=== PATIENT | female | born 1980 | race Caucasian/White ===

== ENCOUNTER 2017-07-18 05:58 | Day surgery (SDC) | payer MEDICAID ==
[~2017-07-18] VITALS: Ht 177.8 cm; Wt 122.5 kg
[~2017-07-18 05:58] MED LIST: AMBIEN10 MG; AMOX/K CLAV875 M1 PO; AMOXICILLIN500 M1 OR; AMOXICILLIN500 MG PO; AMOXIL500 MG OR; AUGMENTIN500 MG OR; BENTYL10 MG PO; BENTYL20 MG PO; CIPRO500 MG OR; CIPROFLOXACN500 MG PO; FENOFIBRATE145 MG PO; FLAGYL500 MG OR; FLEXERIL OR; FLEXERIL10 MG PO; FLONASE NASAL50 MCG; FLOXIN OTIC0.3 % OT; KEFLEX500 M1 PO; KETOROLAC10 MG OR; LORTAB 10 PO; LORTAB 10-325 M1 TAB PO; MECLIZINE25 MG PO; MEDDOSEPAK OR; METRONIDAZOL500 MG PO; MOTRIN600 MG OR; NAPROSYN500 MG OR; NO; NO MEDS; PENICILLN VK500 MG OR; PERCOCET 5/325M1 TAB OR; PROZAC20 M1 PO; SEROQUEL300 MG PO; SILVADENE1 % EX; TOPAMAX100 M1 PO; ULTRAM50 M1 PO; VITAMIN D2000 UNI1 PO; ZITHROMAX250 MG PO
[2017-07-18] MEDS ORDERED: PERCOCET 5/325M1 TAB PO (08:43)
[2017-07-18 10:43] VITALS: BP 91/52
== END 2017-07-18 09:20 | disposition home or self-care (01) | DRG 585 ==
LOC: ORM 05:58
PROVIDERS: ATTEND Surgery
PROC: 0HBT0ZX Excision of Right Breast, Open Approach, Diagnostic (ICD-10-PCS; principal; 2017-07-18)
DX: N64.1 Fat necrosis of breast (principal); E78.5 Hyperlipidemia, unspecified; Z85.41 Personal history of malignant neoplasm of cervix uteri; Z90.710 Acquired absence of both cervix and uterus

== ENCOUNTER 2017-08-09 10:32 | Emergency (ER) | payer MEDICAID ==
[~2017-08-09] VITALS: Ht 177.8 cm; Wt 122.0 kg
[~2017-08-09 10:32] MED LIST changes: +PERCOCET 5/325M1 TAB PO
[2017-08-09] MEDS ORDERED: KEFLEX500 MG PO (10:52)
[2017-08-09 11:00] VITALS: BP 123/87
== END 2017-08-09 11:00 | disposition home or self-care (01) | DRG 921 ==
LOC: ED 10:32
DX: T81.31XA Disruption of external operation (surgical) wound, not elsewhere classified, initial encounter (principal)

== ENCOUNTER 2018-04-29 17:46 | Emergency (ER) | payer MEDICAID ==
[~2018-04-29] VITALS: Ht 177.8 cm; Wt 110.0 kg
[~2018-04-29 17:46] MED LIST changes: +KEFLEX500 MG PO
[2018-04-29 18:08] VITALS: BP 145/103
[2018-04-29] MEDS ORDERED: ZOLPIDEM10 MG PO (18:12)
[2018-04-29] MEDS ORDERED: SINGULAIR10 MG PO (18:12)
[2018-04-29] MEDS ORDERED: BACTRIM DS1 TAB PO (18:23)
[2018-04-29] MEDS ORDERED: KEFLEX500 M1 PO (18:23)
== END 2018-04-29 18:25 | disposition home or self-care (01) ==
LOC: ED 17:46
DX: L03.114 Cellulitis of left upper limb (principal); L02.414 Cutaneous abscess of left upper limb; F17.210 Nicotine dependence, cigarettes, uncomplicated

== ENCOUNTER 2018-08-08 19:49 | Emergency (ER) | payer MEDICAID ==
[~2018-08-08] VITALS: Ht 177.8 cm; Wt 125.0 kg
[~2018-08-08 19:49] MED LIST changes: +BACTRIM DS1 TAB PO; +SINGULAIR10 MG PO; +ZOLPIDEM10 MG PO
[2018-08-08 21:29] LABS: HEMATOCRIT 43.5 % (37.0-47.0); HEMOGLOBIN 14.4 g/dl (12.0-16.0); IMMATURE GRANULOCYTES 1.1 % (0.0-5.0); MEAN CELL VOLUME 94.4 fL CALC (80.0-100.0); MEAN CORPUSCULAR HGB 31.2 pG CALC (26.0-32.0); MEAN CORPUSCULAR HGB CONC 33.1 g/L CALC (32.0-36.0); NEUT# 8.35 thou/uL (2.00-7.15); RED BLOOD COUNT 4.61 mill/uL (4.20-5.60); RED CELL DISTRI WIDTH 13.5 % (11.5-15.5)
[2018-08-08 21:38] LABS: ALBUMIN 3.8 g/dL (3.2-5.0); ALKALINE PHOSPHATASE 87 u/l (38-126); ANION GAP 12 (6-22 (CALC)); BILIRUBIN, TOTAL 0.4 mg/dL (0.0-1.4); BUN 13 mg/dL (7-17); BUN/CREATININE RATIO 19 (12-20 (CALC)); CARBON DIOXIDE 28 mmol/l (22-30); CHLORIDE 104 mmol/l (95-108); CREATININE 0.7 mg/dL (0.5-1.0); GFR > 60 ML/MIN (>=60 (CALC)); GFR FOR AFR.AMER. > 60 ML/MIN (>=60 (CALC)); POTASSIUM 4.2 mmol/l (3.5-5.1); SGOT/AST 16 u/l (14-36); SODIUM 140 mmol/l (137-146); TOTAL PROTEIN 6.9 g/dL (6.3-8.2)
[2018-08-08] MEDS ORDERED: PERCOCET 5/325M1 TAB PO (23:49)
[2018-08-09 00:10] VITALS: BP 122/72
== END 2018-08-09 01:00 | disposition home or self-care (01) ==
LOC: ED 19:49
PROVIDERS: Emergency Medicine
DX: R07.89 Other chest pain (principal); F17.210 Nicotine dependence, cigarettes, uncomplicated
CPT/HCPCS: Q9967

== ENCOUNTER 2018-10-01 14:12 | Emergency (ER) | payer MEDICAID ==
[~2018-10-01] VITALS: Ht 177.8 cm; Wt 125.0 kg
[2018-10-01] MEDS ORDERED: IBUPROFEN600 MG PO (14:53)
[2018-10-01] MEDS ORDERED: AUGMENTIN875TAB PO (15:42)
[2018-10-01 16:35] VITALS: BP 123/61
== END 2018-10-01 16:35 | disposition home or self-care (01) ==
LOC: ED 14:12
DX: B34.9 Viral infection, unspecified (principal); J32.9 Chronic sinusitis, unspecified; R05 Cough; R09.81 Nasal congestion; F17.210 Nicotine dependence, cigarettes, uncomplicated

== ENCOUNTER 2019-06-16 20:36 | Emergency (ER) | payer MEDICAID ==
[~2019-06-16] VITALS: Ht 177.8 cm; Wt 127.0 kg
[~2019-06-16 20:36] MED LIST changes: +AUGMENTIN875TAB PO; +IBUPROFEN600 MG PO
[2019-06-16 22:45] LABS: HEMATOCRIT 42.1 % (37.0-47.0); HEMOGLOBIN 13.5 g/dl (12.0-16.0); MEAN CORPUSCULAR HGB 30.5 pG CALC (26.0-32.0); MEAN CORPUSCULAR HGB CONC 32.1 g/L CALC (32.0-36.0); NEUT# 6.8 thou/uL (2.00-7.15); RED BLOOD COUNT 4.43 mill/uL (4.20-5.60); RED CELL DISTRI WIDTH 13.4 % (11.5-15.5)
[2019-06-16 23:00] VITALS: BP 118/77
[2019-06-16 23:02] LABS: ALBUMIN 3.6 g/dL (3.2-5.0); ALKALINE PHOSPHATASE 86 u/l (38-126); ANION GAP 11 (6-22 (CALC)); BILIRUBIN, TOTAL 0.3 mg/dL (0.0-1.4); BUN 10 mg/dL (7-17); BUN/CREATININE RATIO 14 (12-20 (CALC)); CARBON DIOXIDE 29 mmol/l (22-30); CHLORIDE 103 mmol/l (95-108); CREATININE 0.7 mg/dL (0.5-1.0); GFR > 60 ML/MIN (>=60 (CALC)); GFR FOR AFR.AMER. > 60 ML/MIN (>=60 (CALC)); SGOT/AST 18 u/l (14-36); SODIUM 139 mmol/l (137-146); TOTAL PROTEIN 6.5 g/dL (6.3-8.2)
[2019-06-16] MEDS ORDERED: TORADOL PO (23:57)
== END 2019-06-17 00:21 | disposition home or self-care (01) ==
LOC: ED 20:36
PROVIDERS: Emergency Medicine
DX: M25.571 Pain in right ankle and joints of right foot (principal); F17.210 Nicotine dependence, cigarettes, uncomplicated

== ENCOUNTER 2019-08-20 17:11 | Emergency (ER) | payer MEDICAID ==
[~2019-08-20] VITALS: Ht 177.8 cm; Wt 127.0 kg
[~2019-08-20 17:11] MED LIST changes: +TORADOL PO
[2019-08-20] MEDS ORDERED: CEPHALEXIN500 MG PO (18:38)
[2019-08-20] MEDS ORDERED: ROBITUSSIN AC10 ML PO (18:38)
[2019-08-20 18:41] VITALS: BP 116/74
== END 2019-08-20 18:45 | disposition home or self-care (01) ==
LOC: ED 17:11
DX: J06.9 Acute upper respiratory infection, unspecified (principal)

== ENCOUNTER 2019-08-22 22:32 | Emergency (ER) | payer MEDICAID ==
[~2019-08-22] VITALS: Ht 177.8 cm; Wt 127.0 kg
[~2019-08-22 22:32] MED LIST changes: +CEPHALEXIN500 MG PO; +ROBITUSSIN AC10 ML PO
[2019-08-22 22:38] VITALS: BP 109/63
== END 2019-08-23 01:10 | disposition left against medical advice (07) ==
LOC: ED 22:32
DX: J06.9 Acute upper respiratory infection, unspecified (principal); H66.90 Otitis media, unspecified, unspecified ear; F17.210 Nicotine dependence, cigarettes, uncomplicated; Z91.19 Patient's noncompliance with other medical treatment and regimen

== ENCOUNTER 2019-12-06 | Emergency (ER) | payer OTHER ==
[2019-12-06 05:57] LABS: HEMATOCRIT 43.5 % (37.0-47.0); HEMOGLOBIN 14.2 g/dl (12.0-16.0); IMMATURE GRANULOCYTES 1.6 % (0.0-5.0); MEAN CELL VOLUME 94.6 fL CALC (80.0-100.0); MEAN CORPUSCULAR HGB 30.9 pG CALC (26.0-32.0); MEAN CORPUSCULAR HGB CONC 32.6 g/dL CAL (32.0-36.0); NEUT# 8.18 thou/uL (2.00-7.15); RED BLOOD COUNT 4.6 mill/uL (4.20-5.60); RED CELL DISTRI WIDTH 13.5 % (11.5-15.5)
[2019-12-06 06:10] LABS: ALBUMIN 3.8 g/dL (3.2-5.0); ALKALINE PHOSPHATASE 87 u/l (38-126); ANION GAP 13 (6-22 (CALC)); BILIRUBIN, TOTAL 0.4 mg/dL (0.0-1.4); BUN 13 mg/dL (7-17); BUN/CREATININE RATIO 19 (12-20 (CALC)); CARBON DIOXIDE 26 mmol/l (22-30); CHLORIDE 101 mmol/l (95-108); CREATININE 0.7 mg/dL (0.5-1.0); GFR > 60 ML/MIN (>=60 (CALC)); GFR FOR AFR.AMER. > 60 ML/MIN (>=60 (CALC)); SGOT/AST 20 u/l (14-36); SODIUM 137 mmol/l (137-146); TOTAL PROTEIN 7.2 g/dL (6.3-8.2)
[2019-12-06] MEDS ORDERED: DOXYCYCL HYC100 MG PO (06:36)
== END 2019-12-06 06:46 | disposition home or self-care (01) ==
PROVIDERS: Family Medicine
DX: J20.9 Acute bronchitis, unspecified (principal); I10 Essential (primary) hypertension; F17.210 Nicotine dependence, cigarettes, uncomplicated

== ENCOUNTER 2020-01-15 | Emergency (ER) | payer OTHER ==
[~2020-01-15] MED LIST changes: +DOXYCYCL HYC100 MG PO
[2020-01-15] MEDS ORDERED: BACTRIM DS1 TAB PO ×2 (09:12)
== END 2020-01-15 09:45 | disposition home or self-care (01) ==
DX: L02.31 Cutaneous abscess of buttock (principal); I10 Essential (primary) hypertension; F17.210 Nicotine dependence, cigarettes, uncomplicated

== ENCOUNTER 2020-04-25 18:14 | Emergency (ER) | payer OTHER ==
[~2020-04-25] VITALS: Ht 177.8 cm; Wt 127.0 kg
[2020-04-25 19:58] LABS: HEMATOCRIT 47.1 % (37.0-47.0); IMMATURE GRANULOCYTES 0.8 % (0.0-5.0); MEAN CELL VOLUME 93.8 fL CALC (80.0-100.0); MEAN CORPUSCULAR HGB 29.9 pG CALC (26.0-32.0); MEAN CORPUSCULAR HGB CONC 31.8 g/dL CAL (32.0-36.0); NEUT# 5.6 thou/uL (2.00-7.15); RED BLOOD COUNT 5.02 mill/uL (4.20-5.60); RED CELL DISTRI WIDTH 13.5 % (11.5-15.5)
[2020-04-25 20:05] LABS: URINE BILIRUBIN - DIPSTICK NEGATIVE (NEGATIVE); URINE BLOOD DIPSTICK LARGE (NEGATIVE); URINE COLOR YELLOW; URINE GLUCOSE - DIPSTICK NEGATIVE (NEGATIVE); URINE KETONE NEGATIVE (NEGATIVE); URINE LEUK ESTERASE NEGATIVE (NEGATIVE); URINE NITRITE - DIPSTICK NEGATIVE (Negative); URINE PROTEIN - DIPSTICK TRACE mg/dL (NEG-TRACE); URINE SPECIFIC GRAVITY >=1.030; URINE UROBILINOGEN - DIPSTICK 0.2 E.U./dL (0.2)
[2020-04-25 20:05] LABS: ALBUMIN 4.2 g/dL (3.2-5.0); ALKALINE PHOSPHATASE 93 u/l (38-126); ANION GAP 13 (6-22 (CALC)); BUN 9 mg/dL (7-17); BUN/CREATININE RATIO 11 (12-20 (CALC)); CARBON DIOXIDE 24 mmol/l (22-30); CHLORIDE 103 mmol/l (95-108); CREATININE 0.8 mg/dL (0.5-1.0); GFR > 60 ML/MIN (>=60 (CALC)); GFR FOR AFR.AMER. > 60 ML/MIN (>=60 (CALC)); LIPASE 56 u/l (23-300); POTASSIUM 4.1 mmol/l (3.5-5.1); SGOT/AST 29 u/l (14-36); SODIUM 136 mmol/l (137-146); TOTAL PROTEIN 7.4 g/dL (6.3-8.2)
[2020-04-25 20:11] LABS: BILIRUBIN, TOTAL 0.7 mg/dL (0.0-1.4)
[2020-04-25 20:32] LABS: URINE BACTERIA MANY hpf; URINE SQUAMOUS EPITHELIAL CELL FEW EPI/hpf (0-FEW)
[2020-04-25 20:33] LABS: URINE MUCUS FEW hpf (NONE-FEW)
[2020-04-25] MEDS ORDERED: TRAMADOL HYDROC50 M1 PO (21:21)
[2020-04-25 21:35] VITALS: BP 131/78
== END 2020-04-25 21:35 | disposition home or self-care (01) ==
LOC: ED 18:14
DX: R10.9 Unspecified abdominal pain (principal); I10 Essential (primary) hypertension; R73.03 Prediabetes; F17.210 Nicotine dependence, cigarettes, uncomplicated; Z88.6 Allergy status to analgesic agent

== ENCOUNTER 2020-11-26 05:17 | Emergency (ER) | payer OTHER ==
[~2020-11-26] VITALS: Ht 177.8 cm; Wt 125.0 kg
[~2020-11-26 05:17] MED LIST changes: +TRAMADOL HYDROC50 M1 PO
[2020-11-26] MEDS ORDERED: AMBIEN10 MG PO (05:50)
[2020-11-26] MEDS ORDERED: STRATTERA40 MG PO (05:50)
[2020-11-26] MEDS ORDERED: IBUPROFEN600 MG PO (05:51)
[2020-11-26] MEDS ORDERED: ATIVAN0.5 MG PO (05:52)
[2020-11-26] MEDS ORDERED: OMEPRAZOLE DR40 MG PO (05:53)
[2020-11-26] MEDS ORDERED: PROAIR HFA108 MCG/AC IN (05:54)
[2020-11-26] MEDS ORDERED: SYMBICORT 80-4.5MCG IN (05:54)
[2020-11-26] MEDS ORDERED: ALBUTEROL1.25 MG/3 IN (05:57)
[2020-11-26 06:05] LABS: HEMATOCRIT 42.2 % (37.0-47.0); HEMOGLOBIN 13.5 g/dl (12.0-16.0); MEAN CELL VOLUME 96.8 fL CALC (80.0-100.0); NEUT# 5.07 thou/uL (2.00-7.15); RED BLOOD COUNT 4.36 mill/uL (4.20-5.60); RED CELL DISTRI WIDTH 13.6 % (11.5-15.5)
[2020-11-26 06:32] LABS: ALBUMIN 3.8 g/dL (3.2-5.0); ALKALINE PHOSPHATASE 83 u/l (38-126); AMYLASE 56 u/l (30-110); ANION GAP 9 (6-22 (CALC)); BUN 9 mg/dL (7-17); BUN/CREATININE RATIO 14 (12-20 (CALC)); CARBON DIOXIDE 28 mmol/l (22-30); CHLORIDE 105 mmol/l (95-108); CREATININE 0.7 mg/dL (0.5-1.0); GFR > 60 ML/MIN (>=60 (CALC)); GFR FOR AFR.AMER. > 60 ML/MIN (>=60 (CALC)); LIPASE 69 u/l (23-300); POTASSIUM 3.9 mmol/l (3.5-5.1); SGOT/AST 31 u/l (14-36); SODIUM 139 mmol/l (137-146); TOTAL PROTEIN 7.1 g/dL (6.3-8.2)
[2020-11-26 06:33] LABS: BILIRUBIN, TOTAL 0.6 mg/dL (0.0-1.4)
[2020-11-26 08:06] LABS: URINE BILIRUBIN - DIPSTICK NEGATIVE (NEGATIVE); URINE BLOOD DIPSTICK SMALL (NEGATIVE); URINE COLOR YELLOW; URINE GLUCOSE - DIPSTICK NEGATIVE (NEGATIVE); URINE KETONE NEGATIVE (NEGATIVE); URINE LEUK ESTERASE NEGATIVE (NEGATIVE); URINE PROTEIN - DIPSTICK NEGATIVE (NEG-TRACE); URINE SPECIFIC GRAVITY 1.025; URINE UROBILINOGEN - DIPSTICK 0.2 E.U./dL (0.2)
[2020-11-26 08:08] LABS: URINE NITRITE - DIPSTICK NEGATIVE (Negative)
[2020-11-26 08:22] LABS: URINE RBC 0-2 RBC/hpf (0-5)
[2020-11-26] MEDS ORDERED: TRAMADOL HYDROC50 M1 PO (12:16)
[2020-11-26 12:23] VITALS: BP 142/70
== END 2020-11-26 12:24 | disposition left against medical advice (07) ==
LOC: ED 05:17 → ED-I 09:50 → ED 12:24
PROVIDERS: Emergency Medicine
DX: R10.11 Right upper quadrant pain (principal); I10 Essential (primary) hypertension; R73.03 Prediabetes; F17.200 Nicotine dependence, unspecified, uncomplicated; Z91.19 Patient's noncompliance with other medical treatment and regimen
CPT/HCPCS: Q9967; S0164

== ENCOUNTER 2021-05-02 22:18 | Emergency (ER) | payer OTHER ==
[~2021-05-02 22:18] MED LIST changes: +ALBUTEROL1.25 MG/3 IN; +AMBIEN10 MG PO; +ATIVAN0.5 MG PO; +NEURONTIN400 MG PO; +OMEPRAZOLE DR40 MG PO; +PROAIR HFA108 MCG/AC IN; +STRATTERA40 MG PO; +SYMBICORT 80-4.5MCG IN; +TOPAMAX50 M1 PO
== END 2021-05-02 23:31 | disposition home or self-care (01) | DRG 951 ==
LOC: ED 22:18 → LWOBS 23:31 → ED 23:45
DX: Z53.21 Procedure and treatment not carried out due to patient leaving prior to being seen by health care provider (principal)

== ENCOUNTER 2021-07-14 20:32 | Emergency (ER) | payer OTHER ==
[~2021-07-14] VITALS: Ht 177.8 cm; Wt 131.0 kg
[2021-07-14 21:29] LABS: HEMATOCRIT 41.6 % (37.0-47.0); HEMOGLOBIN 13.5 g/dl (12.0-16.0); MEAN CELL VOLUME 96.1 fL CALC (80.0-100.0); MEAN CORPUSCULAR HGB 31.2 pG CALC (26.0-32.0); MEAN CORPUSCULAR HGB CONC 32.5 g/dL CAL (32.0-36.0); NEUT# 6.3 thou/uL (2.00-7.15); RED BLOOD COUNT 4.33 mill/uL (4.20-5.60); RED CELL DISTRI WIDTH 14.2 % (11.5-15.5)
[2021-07-14] MEDS ORDERED: PREDNISONE50 MG PO (22:02)
[2021-07-14 22:21] VITALS: BP 116/62
== END 2021-07-14 22:28 | disposition home or self-care (01) ==
LOC: ED 20:32
PROVIDERS: Family Medicine
DX: J44.1 Chronic obstructive pulmonary disease with (acute) exacerbation (principal); J06.9 Acute upper respiratory infection, unspecified; I10 Essential (primary) hypertension; R73.03 Prediabetes; F17.200 Nicotine dependence, unspecified, uncomplicated

== ENCOUNTER 2022-05-06 20:32 | Emergency (ER) | payer OTHER ==
[~2022-05-06] VITALS: Ht 177.8 cm; Wt 138.6 kg
[~2022-05-06 20:32] MED LIST changes: +PREDNISONE50 MG PO
[2022-05-06 20:45] VITALS: BP 136/81
[2022-05-06 21:00] VITALS: BP 137/84
[2022-05-06 21:15] VITALS: BP 127/77
[2022-05-06 21:30] VITALS: BP 123/78
[2022-05-06 22:46] VITALS: BP 123/78
== END 2022-05-06 23:18 | disposition home or self-care (01) | DRG 605 ==
LOC: ED 20:32
DX: S60.511A Abrasion of right hand, initial encounter (principal); S90.811A Abrasion, right foot, initial encounter; S40.022A Contusion of left upper arm, initial encounter; S96.912A Strain of unspecified muscle and tendon at ankle and foot level, left foot, initial encounter; I10 Essential (primary) hypertension; R73.03 Prediabetes; K76.0 Fatty (change of) liver, not elsewhere classified; E78.00 Pure hypercholesterolemia, unspecified; F17.200 Nicotine dependence, unspecified, uncomplicated; V43.52XA Car driver injured in collision with other type car in traffic accident, initial encounter; Z86.16 Personal history of COVID-19

== ENCOUNTER 2022-08-16 21:56 | Emergency (ER) | payer OTHER ==
[~2022-08-16] VITALS: Ht 177.8 cm; Wt 120.0 kg
[2022-08-16] MEDS ORDERED: LORTAB 1010 MG PO (23:46)
[2022-08-17 00:05] VITALS: BP 144/71
== END 2022-08-17 00:15 | disposition home or self-care (01) ==
LOC: ED 21:56
DX: S63.501A Unspecified sprain of right wrist, initial encounter (principal); I10 Essential (primary) hypertension; K76.0 Fatty (change of) liver, not elsewhere classified; E78.00 Pure hypercholesterolemia, unspecified; Z86.16 Personal history of COVID-19; F17.210 Nicotine dependence, cigarettes, uncomplicated; X58.XXXA Exposure to other specified factors, initial encounter

== ENCOUNTER 2022-08-22 21:52 | Emergency (ER) | payer OTHER ==
[~2022-08-22] VITALS: Ht 177.8 cm; Wt 137.0 kg
[~2022-08-22 21:52] MED LIST changes: +LORTAB 1010 MG PO
[2022-08-22 23:47] VITALS: BP 109/63
== END 2022-08-22 23:59 | disposition home or self-care (01) ==
LOC: ED 21:52
DX: R05.9 Cough, unspecified (principal); I10 Essential (primary) hypertension; R73.03 Prediabetes; K76.0 Fatty (change of) liver, not elsewhere classified; E78.00 Pure hypercholesterolemia, unspecified; F17.200 Nicotine dependence, unspecified, uncomplicated; Z86.16 Personal history of COVID-19; Z20.822 Contact with and (suspected) exposure to COVID-19

== ENCOUNTER 2023-02-26 13:12 | Emergency (ER) | payer OTHER ==
[~2023-02-26] VITALS: Ht 177.8 cm; Wt 136.0 kg
[2023-02-26] VITALS (7 sets, daily range): BP systolic 102–123; BP diastolic 50–73
[2023-02-26 14:13] LABS: URINE BILIRUBIN - DIPSTICK NEGATIVE (NEGATIVE); URINE BLOOD DIPSTICK LARGE (NEGATIVE); URINE COLOR YELLOW; URINE GLUCOSE - DIPSTICK NEGATIVE (NEGATIVE); URINE KETONE NEGATIVE (NEGATIVE); URINE PROTEIN - DIPSTICK TRACE mg/dL (NEG-TRACE); URINE SPECIFIC GRAVITY <=1.005; URINE UROBILINOGEN - DIPSTICK 0.2 E.U./dL (0.2)
[2023-02-26 14:19] LABS: URINE LEUK ESTERASE SMALL (NEGATIVE); URINE NITRITE - DIPSTICK NEGATIVE (Negative)
[2023-02-26 14:24] LABS: URINE WBC 20-50 WBC/hpf (0-5)
[2023-02-26 14:25] LABS: URINE BACTERIA FEW hpf; URINE SQUAMOUS EPITHELIAL CELL MODERATE EPI/hpf (0-FEW)
[2023-02-26 14:53] LABS: BASO% 0.5 % (0-3); HEMATOCRIT 44.4 % (37.0-47.0); HEMOGLOBIN 14.1 g/dl (12.0-16.0); IMMATURE GRANULOCYTES 4.1 % (0.0-5.0); LYMPH% 23.7 % (15-41); MEAN CELL VOLUME 95.1 fL CALC (80.0-100.0); MEAN CORPUSCULAR HGB 30.2 pG CALC (26.0-32.0); MEAN CORPUSCULAR HGB CONC 31.8 g/dL CAL (32.0-36.0); MONO% 6.9 % (2-13); NEUT# 9.12 thou/uL (2.00-7.15); NEUT% 61.8 % (42-76); RED BLOOD COUNT 4.67 mill/uL (4.20-5.60); RED CELL DISTRI WIDTH 13.7 % (11.5-15.5)
[2023-02-26 15:03] LABS: ALKALINE PHOSPHATASE 95 u/l (38-126); ANION GAP 13 (6-22 (CALC)); BILIRUBIN, TOTAL 0.5 mg/dL (0.02-1.3); BUN 11 mg/dL (7-17); BUN/CREATININE RATIO 16 (12-20 (CALC)); CARBON DIOXIDE 27 mmol/l (22-30); CHLORIDE 102 mmol/l (95-108); CREATININE 0.7 mg/dL (0.5-1.0); GFR FOR AFR.AMER. > 60 ML/MIN (>=60 (CALC)); GFR OTHER RACES > 60 ML/MIN (>=60 (CALC)); POTASSIUM 3.6 mmol/l (3.5-5.1); SGOT/AST 29 u/l (14-36); SODIUM 138 mmol/l (137-146); TOTAL PROTEIN 7.5 g/dL (6.3-8.2)
[2023-02-26] MEDS ORDERED: PHENAZOPYRIDIN100 M1 PO (16:07)
[2023-02-26] MEDS ORDERED: LORTAB 5/3255 MG PO (16:07)
[2023-02-26] MEDS ORDERED: KEFLEX500 MG PO (16:07)
== END 2023-02-26 16:20 | disposition home or self-care (01) ==
LOC: ED 13:12
PROVIDERS: Family Medicine; Nurse Practitioner
DX: N30.91 Cystitis, unspecified with hematuria (principal); I10 Essential (primary) hypertension; K76.0 Fatty (change of) liver, not elsewhere classified; E78.00 Pure hypercholesterolemia, unspecified; F17.210 Nicotine dependence, cigarettes, uncomplicated; Z87.442 Personal history of urinary calculi; Z90.710 Acquired absence of both cervix and uterus; Z86.16 Personal history of COVID-19

== ENCOUNTER 2023-08-29 19:16 | Emergency (ER) | payer SELFPAY ==
[~2023-08-29] VITALS: Ht 177.8 cm; Wt 136.0 kg
[~2023-08-29 19:16] MED LIST changes: +LORTAB 5/3255 MG PO; +PHENAZOPYRIDIN100 M1 PO
[2023-08-29 19:25] VITALS: BP 124/71
[2023-08-29 19:31] VITALS: BP 105/67
[2023-08-29 19:45] VITALS: BP 121/80
[2023-08-29 19:54] LABS: BASO% 0.4 % (0-3); EOS% 2.1 % (0-8); HEMATOCRIT 46.2 % (37.0-47.0); HEMOGLOBIN 14.9 g/dl (12.0-16.0); IMMATURE GRANULOCYTES 1.7 % (0.0-5.0); LYMPH% 23.8 % (15-41); MEAN CELL VOLUME 94.3 fL CALC (80.0-100.0); MEAN CORPUSCULAR HGB 30.4 pG CALC (26.0-32.0); MEAN CORPUSCULAR HGB CONC 32.3 g/dL CAL (32.0-36.0); MONO% 6.6 % (2-13); NEUT# 10.48 thou/uL (2.00-7.15); NEUT% 65.4 % (42-76); RED BLOOD COUNT 4.9 mill/uL (4.20-5.60); RED CELL DISTRI WIDTH 13.8 % (11.5-15.5)
[2023-08-29 20:01] VITALS: BP 114/68
[2023-08-29 20:03] LABS: ALBUMIN 4.2 g/dL (3.2-5.0); ALKALINE PHOSPHATASE 119 u/l (38-126); ANION GAP 14 (6-22 (CALC)); BILIRUBIN, TOTAL 0.5 mg/dL (0.02-1.3); BUN 12 mg/dL (7-17); BUN/CREATININE RATIO 18 (12-20 (CALC)); CARBON DIOXIDE 27 mmol/l (22-30); CHLORIDE 102 mmol/l (95-108); CPK 49 u/l (30-135); CREATININE 0.6 mg/dL (0.5-1.0); GFR FOR AFR.AMER. > 60 ML/MIN (>=60 (CALC)); GFR OTHER RACES > 60 ML/MIN (>=60 (CALC)); LIPASE 87 u/l (23-300); POTASSIUM 3.8 mmol/l (3.5-5.1); SGOT/AST 36 u/l (14-36); SODIUM 139 mmol/l (137-146); TOTAL PROTEIN 7.8 g/dL (6.3-8.2)
[2023-08-29 20:09] LABS: URINE BILIRUBIN - DIPSTICK Negative (NEGATIVE); URINE BLOOD DIPSTICK Moderate (NEGATIVE); URINE GLUCOSE - DIPSTICK Negative (NEGATIVE); URINE KETONE Negative (NEGATIVE); URINE NITRITE - DIPSTICK Negative (Negative); URINE PH 5.5 (4.5-8.0); URINE PROTEIN - DIPSTICK 30 mg/dL (NEG-TRACE); URINE SPECIFIC GRAVITY >=1.030; URINE UROBILINOGEN - DIPSTICK 0.2 E.U./dL (0.2)
[2023-08-29 20:11] LABS: URINE COLOR Yellow; URINE LEUK ESTERASE Small (NEGATIVE)
[2023-08-29 20:12] LABS: URINE SQUAMOUS EPITHELIAL CELL FEW EPI/hpf (0-FEW)
[2023-08-29 20:16] VITALS: BP 113/76
[2023-08-29] MEDS ORDERED: ZOFRAN4 MG/TAB PO (22:17)
[2023-08-29] MEDS ORDERED: DICYCLOMINE HCL20 MG PO (22:17)
[2023-08-29] MEDS ORDERED: OMNI-PAC300 MG PO (22:17)
[2023-08-29 22:50] VITALS: BP 110/78
== END 2023-08-29 22:51 | disposition home or self-care (01) | DRG 690 ==
LOC: ED 19:16
PROVIDERS: Internal Medicine
DX: N39.0 Urinary tract infection, site not specified (principal); I10 Essential (primary) hypertension; K76.0 Fatty (change of) liver, not elsewhere classified; J44.9 Chronic obstructive pulmonary disease, unspecified; E78.00 Pure hypercholesterolemia, unspecified; F17.210 Nicotine dependence, cigarettes, uncomplicated; Z86.16 Personal history of COVID-19

== ENCOUNTER 2024-08-07 02:00 | Emergency (ER) | payer OTHER ==
[~2024-08-07] VITALS: Ht 177.8 cm; Wt 136.0 kg
[~2024-08-07 02:00] MED LIST changes: +DICYCLOMINE HCL20 MG PO; +OMNI-PAC300 MG PO; +ZOFRAN4 MG/TAB PO
[2024-08-07] MEDS ORDERED: HYDROcodone 5 MG/Acetaminophen 325 MG/COMBO PO ONE (02:30)
[2024-08-07] MEDS ORDERED: FLEXERIL5 M1 PO (02:36)
[2024-08-07 03:45] VITALS: BP 125/76
== END 2024-08-07 03:59 | disposition home or self-care (01) | DRG 605 ==
LOC: ED 02:00
DX: S40.012A Contusion of left shoulder, initial encounter (principal); I10 Essential (primary) hypertension; R73.03 Prediabetes; K76.0 Fatty (change of) liver, not elsewhere classified; E78.00 Pure hypercholesterolemia, unspecified; J44.9 Chronic obstructive pulmonary disease, unspecified; F17.200 Nicotine dependence, unspecified, uncomplicated; V43.53XA Car driver injured in collision with pick-up truck in traffic accident, initial encounter; Z86.16 Personal history of COVID-19